=== PATIENT | male | born 1985 | race African-American/Black ===

== ENCOUNTER 2021-12-28 12:53 | Inpatient (IN) | payer OTHER ==
[2021-12-28] MEDS ORDERED: LOPERAMIDE HCL 2 MG CAPSULE PO PRN (13:44)
[2021-12-28] MEDS ORDERED: methaDONE HCL 10 MG TABLET (FOR DETOX USE ONLY) PO ONE (13:44)
[2021-12-28] MEDS ORDERED: MAG HYDROX/AL HYDROX/SIMETH 30 ML UNIT-DOSE CUP PO PRN (13:44)
[2021-12-28] MEDS ORDERED: cloNIDine HCL 0.1 MG TABLET PO PRN (13:44)
[2021-12-28] MEDS ORDERED: NICOTINE 10 MG CARTRIDGE (INHALER) IH PRN (13:44)
[2021-12-28] MEDS ORDERED: MAGNESIUM HYDROX 2400MG/30ML ORAL SUSPENSION 30 ML CUP PO PRN (13:44)
[2021-12-28] MEDS ORDERED: BISMUTH SUBSALICYLATE 262 MG/15 ML BTL PO PRN (13:44)
[2021-12-28] MEDS ORDERED: ONDANSETRON *ODT* 4 MG TABLET SL PRN (13:44)
[2021-12-28] MEDS ORDERED: MAGNESIUM CITRATE 300 ML BOTTLE PO PRN (13:44)
[2021-12-28] MEDS ORDERED: ACETAMINOPHEN 325 MG TABLET (FP) PO PRN ×2 (13:44)
[2021-12-28] MEDS ORDERED: MENTHOL/PHENOL 1 EACH UD MM PRN (13:44)
[2021-12-28 14:18] VITALS: BMI 29.1
[2021-12-28 18:08] LABS: HEMATOCRIT 34.5 % (35.4-49); HEMOGLOBIN 11.1 GM/dL (11.7-16.9); MCHC 32.1 g/dl (32.0-35.9); MEAN CELL VOLUME 71.5 fl (80-96); MEAN PLT VOLUME 7.3 fl (7.5-11.1); PLATELET COUNT 292 10^3/uL (134-434); RBC 4.82 M/mm3 (4.00-5.60); RDW 15.7 % (11.9-15.9); WHITE BLOOD COUNT 4.2 K/mm3 (4.0-10.0)
[2021-12-28 18:11] LABS: CALCIUM 8.8 mg/dL (8.5-10.1)
[2021-12-28 18:12] LABS: ALBUMIN 3.4 g/dl (3.4-5.0); BLOOD UREA NITROGEN 7.8 mg/dL (7-18)
[2021-12-28 18:15] LABS: CREATININE 1.1 mg/dL (0.55-1.3)
[2021-12-28 18:16] LABS: BILIRUBIN,TOTAL 0.7 mg/dL (0.2-1); TOT PROT 6.9 g/dl (6.4-8.2)
[2021-12-28] MEDS ORDERED: methaDONE HCL 10 MG TABLET (FOR DETOX USE ONLY) ONE (22:03)
[2021-12-28] MEDS ORDERED: hydrOXYzine PAMOATE 25 MG CAPSULE (FP) PO ONE (23:11)
[2021-12-28] MEDS: THIAMINE HCL 100 MG TABLET (FP) PO SCH (23:14)
[2021-12-28] MEDS: hydrOXYzine PAMOATE 25 MG CAPSULE (FP) PO SCH (23:14)
[2021-12-28] MEDS: MELATONIN 5 MG TABLETS PO SCH (23:14)
[2021-12-28] MEDS: IBUPROFEN 400 MG TABLET (FP) PO PRN (23:56)
[2021-12-29] MEDS: hydrOXYzine PAMOATE 25 MG CAPSULE (FP) PO SCH ×6 (00:04→22:32)
[2021-12-29] MEDS: PRENATAL VITAMINS W/ FOLIC ACID TABLET (FP) PO SCH ×2 (01:10→10:56)
[2021-12-29] MEDS: CEPHALEXIN MONOHYDRATE 500 MG CAPSULE (UD) PO SCH ×4 (06:36→23:55)
[2021-12-29] MEDS ORDERED: methaDONE HCL 10 MG TABLET (FOR DETOX USE ONLY) ONE (09:00)
[2021-12-29] MEDS: NICOTINE 14 MG/24 HOURS TOPICAL PATCH TD SCH (10:57)
[2021-12-29] MEDS: SULFAMETHOXAZOLE/TRIMETHOPRIM 800MG/160MG D.S. TABLET PO SCH ×2 (10:57→22:32)
[2021-12-29] MEDS: diazePAM 5 MG TABLET PO PRN ×2 (13:43→18:26)
[2021-12-29] MEDS: BACITRACIN 0.9 GM PACKET TP SCH ×2 (13:43→22:32)
[2021-12-29] MEDS: MELATONIN 5 MG TABLETS PO SCH (22:32)
[2021-12-29] MEDS: THIAMINE HCL 100 MG TABLET (FP) PO SCH (22:32)
[2021-12-29] MEDS: NICOTINE POLACRILEX 4 MG GUM BUC PRN (22:34)
[2021-12-30] MEDS: hydrOXYzine PAMOATE 25 MG CAPSULE (FP) PO SCH ×5 (05:39→22:51)
[2021-12-30] MEDS: CEPHALEXIN MONOHYDRATE 500 MG CAPSULE (UD) PO SCH ×3 (05:39→18:14)
[2021-12-30] MEDS: NICOTINE POLACRILEX 4 MG GUM BUC PRN ×4 (06:33→22:53)
[2021-12-30] MEDS ORDERED: methaDONE HCL 10 MG TABLET (FOR DETOX USE ONLY) PO ONE (10:00)
[2021-12-30] MEDS: PRENATAL VITAMINS W/ FOLIC ACID TABLET (FP) PO SCH (10:20)
[2021-12-30] MEDS: METHOCARBAMOL 500 MG TABLET PO PRN ×2 (10:21→22:51)
[2021-12-30] MEDS: diazePAM 5 MG TABLET PO PRN ×3 (10:21→19:31)
[2021-12-30] MEDS: SULFAMETHOXAZOLE/TRIMETHOPRIM 800MG/160MG D.S. TABLET PO SCH ×2 (10:21→22:51)
[2021-12-30] MEDS: BACITRACIN 0.9 GM PACKET TP SCH ×2 (10:21→22:51)
[2021-12-30] MEDS: IBUPROFEN 400 MG TABLET (FP) PO PRN (10:22)
[2021-12-30] MEDS: NICOTINE 14 MG/24 HOURS TOPICAL PATCH TD SCH (10:57)
[2021-12-30] MEDS: MELATONIN 5 MG TABLETS PO SCH (22:51)
[2021-12-30] MEDS: THIAMINE HCL 100 MG TABLET (FP) PO SCH (22:51)
[2021-12-31] MEDS: CEPHALEXIN MONOHYDRATE 500 MG CAPSULE (UD) PO SCH ×5 (00:11→23:02)
[2021-12-31] MEDS: hydrOXYzine PAMOATE 25 MG CAPSULE (FP) PO SCH ×5 (05:51→22:19)
[2021-12-31] MEDS ORDERED: methaDONE HCL 10 MG TABLET (FOR DETOX USE ONLY) ONE (09:25)
[2021-12-31] MEDS: BACITRACIN 0.9 GM PACKET TP SCH ×2 (10:46→23:01)
[2021-12-31] MEDS: NICOTINE 14 MG/24 HOURS TOPICAL PATCH TD SCH (10:46)
[2021-12-31] MEDS: SULFAMETHOXAZOLE/TRIMETHOPRIM 800MG/160MG D.S. TABLET PO SCH ×2 (10:47→22:19)
[2021-12-31] MEDS: PRENATAL VITAMINS W/ FOLIC ACID TABLET (FP) PO SCH (10:47)
[2021-12-31] MEDS: NICOTINE POLACRILEX 4 MG GUM BUC PRN ×3 (11:37→17:53)
[2021-12-31] MEDS: diazePAM 5 MG TABLET PO PRN ×2 (17:52→22:19)
[2021-12-31] MEDS: MELATONIN 5 MG TABLETS PO SCH (22:19)
[2021-12-31] MEDS: THIAMINE HCL 100 MG TABLET (FP) PO SCH (22:19)
[2022-01-01] MEDS: hydrOXYzine PAMOATE 25 MG CAPSULE (FP) PO SCH ×2 (06:29→10:24)
[2022-01-01] MEDS: CEPHALEXIN MONOHYDRATE 500 MG CAPSULE (UD) PO SCH ×2 (06:29→11:47)
[2022-01-01] MEDS: NICOTINE POLACRILEX 4 MG GUM BUC PRN (08:51)
[2022-01-01 09:41] VITALS: BP 99/61; PULSE 65; TEMP 96.6
[2022-01-01] MEDS ORDERED: methaDONE HCL 10 MG TABLET (FOR DETOX USE ONLY) PO ONE (10:00)
[2022-01-01] MEDS: SULFAMETHOXAZOLE/TRIMETHOPRIM 800MG/160MG D.S. TABLET PO SCH (10:20)
[2022-01-01] MEDS: METHOCARBAMOL 500 MG TABLET PO PRN (10:20)
[2022-01-01] MEDS: BACITRACIN 0.9 GM PACKET TP SCH (10:20)
[2022-01-01] MEDS: diazePAM 5 MG TABLET PO PRN (10:21)
[2022-01-01] MEDS: NICOTINE 14 MG/24 HOURS TOPICAL PATCH TD SCH (10:24)
[2022-01-01] MEDS: PRENATAL VITAMINS W/ FOLIC ACID TABLET (FP) PO SCH (10:24)
== END 2022-01-01 11:39 | disposition home or self-care (01) | DRG 773 ==
LOC: YASAS 12:53 → Y6N 23:22
PROVIDERS: ADMIT Allergy & Immunology; ATTEND Allergy & Immunology
PROC: HZ2ZZZZ Detoxification Services for Substance Abuse Treatment (ICD-10-PCS; principal; 2021-12-28)
DX: F11.23 Opioid dependence with withdrawal (principal); F10.20 Alcohol dependence, uncomplicated; F14.10 Cocaine abuse, uncomplicated; F12.10 Cannabis abuse, uncomplicated; F17.210 Nicotine dependence, cigarettes, uncomplicated; L03.113 Cellulitis of right upper limb; L03.114 Cellulitis of left upper limb; T81.41XD Infection following a procedure, superficial incisional surgical site, subsequent encounter; V09.9XXD Pedestrian injured in unspecified transport accident, subsequent encounter
CPT/HCPCS: 36415; 80053; 85027; 86780; C9803; U0003; U0005

== ENCOUNTER 2023-08-17 12:54 | Inpatient (IN) | payer OTHER ==
[2023-08-17 13:21] VITALS: BMI 32.3
[2023-08-17] MEDS ORDERED: hydrOXYzine PAMOATE 25 MG CAPSULE (FP) PO PRN (13:54)
[2023-08-17] MEDS ORDERED: BENZONATATE 200 MG CAPSULE PO PRN (13:54)
[2023-08-17] MEDS ORDERED: IBUPROFEN 600 MG TABLET (FP) PO PRN (13:54)
[2023-08-17] MEDS ORDERED: MAG HYDROX/AL HYDROX/SIMETH 30 ML UNIT-DOSE CUP PO PRN (13:54)
[2023-08-17] MEDS ORDERED: cloNIDine HCL 0.1 MG TABLET PO PRN (13:54)
[2023-08-17] MEDS ORDERED: BENZOCAINE/MENTHOL (CHLORASEPTIC ) LOZENGE MM PRN (13:54)
[2023-08-17] MEDS ORDERED: ACETAMINOPHEN 325 MG TABLET (FP) PO PRN (13:54)
[2023-08-17] MEDS ORDERED: LOPERAMIDE HCL 2 MG CAPSULE PO PRN (13:54)
[2023-08-17] MEDS ORDERED: IBUPROFEN 400 MG TABLET (FP) PO PRN (13:54)
[2023-08-17] MEDS ORDERED: ONDANSETRON *ODT* 4 MG TABLET SL PRN (13:54)
[2023-08-17] MEDS ORDERED: NALOXONE HCL 0.4 MG/ML VIAL IM PRN (13:54)
[2023-08-17] MEDS ORDERED: guaiFENesin 600 MG TABLET.ER (FP) PO PRN (13:54)
[2023-08-17] MEDS ORDERED: MAGNESIUM HYDROX 2400MG/30ML ORAL SUSPENSION 30 ML CUP PO PRN (13:54)
[2023-08-17] MEDS ORDERED: methaDONE HCL 10 MG TABLET (FOR DETOX USE ONLY) PO ONE (13:54)
[2023-08-17] MEDS ORDERED: POLYETHYLENE GLYCOL (HEALTHYLAX) 3350 17 GM PACKET PO PRN (13:54)
[2023-08-17] MEDS ORDERED: NALOXONE HCL (KLOXXADO) 8 MG SPRAY NS PRN (13:54)
[2023-08-17] MEDS ORDERED: BISMUTH SUBSALICYLATE 262 MG/15 ML BTL PO PRN (13:54)
[2023-08-17] MEDS ORDERED: methaDONE HCL 10 MG TABLET (FOR DETOX USE ONLY) ONE (15:04)
[2023-08-17] MEDS: PRENATAL VITAMINS W/ FOLIC ACID TABLET (FP) PO SCH (15:12)
[2023-08-17] MEDS: NICOTINE 14 MG/24 HOURS TOPICAL PATCH TD SCH (15:12)
[2023-08-17] MEDS ORDERED: NICOTINE 14 MG/24 HOURS TOPICAL PATCH TD ONE (15:12)
[2023-08-17] MEDS: THIAMINE HCL 100 MG TABLET (FP) PO SCH (23:12)
[2023-08-17] MEDS: MELATONIN 5 MG TABLETS PO SCH (23:12)
[2023-08-18] MEDS: NICOTINE 14 MG/24 HOURS TOPICAL PATCH TD SCH (10:30)
[2023-08-18] MEDS: PRENATAL VITAMINS W/ FOLIC ACID TABLET (FP) PO SCH (10:30)
[2023-08-18] MEDS: DICYCLOMINE HCL 10 MG CAPSULE PO PRN (15:26)
[2023-08-18] MEDS: METHOCARBAMOL 500 MG TABLET PO PRN (15:26)
[2023-08-18] MEDS: THIAMINE HCL 100 MG TABLET (FP) PO SCH (23:37)
[2023-08-18] MEDS: MELATONIN 5 MG TABLETS PO SCH (23:37)
[2023-08-19] MEDS ORDERED: methaDONE HCL 10 MG TABLET (FOR DETOX USE ONLY) PO ONE (10:00)
[2023-08-19] MEDS: METHOCARBAMOL 500 MG TABLET PO PRN (10:04)
[2023-08-19] MEDS: DICYCLOMINE HCL 10 MG CAPSULE PO PRN (10:04)
[2023-08-19] MEDS: PRENATAL VITAMINS W/ FOLIC ACID TABLET (FP) PO SCH (10:05)
[2023-08-19] MEDS: NICOTINE 14 MG/24 HOURS TOPICAL PATCH TD SCH (10:05)
[2023-08-19 13:09] VITALS: PULSE 60
[2023-08-19 17:11] VITALS: BP 116/60; RESP 17; TEMP 98.2
[2023-08-21] MEDS ORDERED: methaDONE HCL 10 MG TABLET (FOR DETOX USE ONLY) PO ONE (10:00)
== END 2023-08-19 17:47 | disposition left against medical advice (07) | DRG 770 ==
LOC: YASAS 12:54 → Y6N 15:47
PROVIDERS: ADMIT Allergy & Immunology; ATTEND Surgery
PROC: HZ2ZZZZ Detoxification Services for Substance Abuse Treatment (ICD-10-PCS; principal; 2023-08-17)
DX: F11.23 Opioid dependence with withdrawal (principal); F10.10 Alcohol abuse, uncomplicated; F14.10 Cocaine abuse, uncomplicated; F17.210 Nicotine dependence, cigarettes, uncomplicated; E66.9 Obesity, unspecified; Z68.32 Body mass index [BMI] 32.0-32.9, adult; Z59.02 Unsheltered homelessness
CPT/HCPCS: 87635